=== PATIENT | female | born 1985 | race Caucasian/White ===

== ENCOUNTER 2025-02-01 18:03 | Emergency (ER) | payer BC, SELFPAY ==
[2025-02-01 18:06] VITALS: BP 149/91
[2025-02-01 18:42] LABS: % Basophils 0.4 % (0-2); % Eosinophils 1.7 % (0-6); % Immature Granulocytes 0.2 % (0-0.5); % Lymphocytes 37.6 % (20.5-51.1); % Monocytes 5.3 % (1.7-9.3); % Neutrophils 54.8 % (42.2-75.2); Absolute Eosinophils 0.2 10^3/uL (0-0.7); Absolute Lymphocytes 3.6 10^3/uL (1.2-3.4); Absolute Monocytes 0.5 10^3/uL (0.1-0.6); Absolute Neutrophils 5.3 10^3/uL (1.4-6.5); Hematocrit 43.4 % (37.0-47.0); Hemoglobin 14.8 g/dL (12.0-16.0); Mean Corp Hgb Conc. 34.1 g/dL (33.0-37.0); Mean Corpuscular Hgb 30.3 pg (27.0-31.0); Mean Corpuscular Volume 88.8 fL (81.0-99.0); Mean Platelet Volume 10.9 fL (7.4-10.4); Nucleated Red Blood Cells % 0 %; Platelet Count 258 10^3/uL (130-400); Red Blood Cell Count 4.89 10^6/uL (4.20-5.40); White Blood Cell Count 9.6 10^3/uL (4.8-10.8)
[2025-02-01 18:55] LABS: HCG, Serum Qualitative Screen Negative
[2025-02-01 18:56] LABS: Urine Albumin Negative (Neg - Trace); Urine Bilirubin Negative (Negative); Urine Character Clear (Clear); Urine Color Yellow; Urine Glucose Negative (Negative); Urine Ketone 1+ (Negative); Urine Leukocyte 1+ (Negative); Urine Nitrite Negative (Negative); Urine Occult Blood Negative (Negative); Urine Specific Gravity 1.015 (<1.030); Urine Urobilinogen Negative (Neg - 1+)
[2025-02-01 18:57] LABS: ALT (SGPT) 18 U/L (0-35); AST (SGOT) 20 U/L (14-36); Alkaline Phosphatase 59 U/L (38-126); Blood Urea Nitrogen 9 mg/dl (7-17); Calcium 9.8 mg/dl (8.4-10.2); Carbon Dioxide 24 mmol/L (22-30); Chloride 101 mmol/L (98-107); Glucose 102 mg/dl (70-99); Potassium 3.9 mmol/L (3.5-5.1); Sodium 138 mmol/L (135-145); Total Bilirubin 1.1 mg/dl (0.2-1.3); Total Protein 7.9 g/dl (6.3-8.2); eGFR > 60.00
[2025-02-01 19:22] LABS: Urine Bacteria Moderate (Negative); Urine Red Blood Cell 0-2 /HPF (0-2); Urine Squamous Cell >30 /LPF (Few)
[2025-02-01 19:45] VITALS: BMI 24.2
[2025-02-01] MEDS: NSS 1000 IV (19:51)
[2025-02-01] MEDS: TORADOL 15 MG IV (19:51)
[2025-02-01] MEDS: ZOFRAN 4 MG IV (19:52)
--- NOTE | 2025-02-01 21:48 | ED.GENMED ---
History of Present Illness
General
Chief Complaint: Flank Pain
Source: patient
Exam Limitations: none
Time Seen by Provider: 02/01/25 19:25
Nursing documentation reviewed up to this point in time: agreed with
History of Present Illness
History of Present Illness:
Patient is a 39-year-old female presenting to the emergency department for evaluation of left flank pain. Patient states symptoms initially started about 2 weeks ago and have been relatively intermittent. She initially thought she strained a
muscle. However�on Friday symptoms worsened. She describes a pain in her left mid back with very minimal radiation around to her left abdomen. No radiation to her groin or leg. She does feel as if symptoms are worse with certain positions
and/or movement. Patient denies any associated dysuria, urinary frequency, or hematuria. No vomiting although does report mild nausea with severe waves of pain. No fevers or chills. No chest pain or shortness of breath. Patient denies any
numbness/tingling in lower extremities or bowel/bladder incontinence.
Patient has had a kidney stone in the past and feels symptoms somewhat remind her of that.
Review of Systems
Review of Systems
Allergies reviewed?: Yes
All Other Systems: ROS reviewed and negative except as documented in HPI and ROS
Phy Exam
Physical Exam
Physical Exam:
Vitals: Patient's vital signs are stable. Afebrile
General: Patient is well appearing, no acute distress. Nontoxic appearing
Skin: Warm and dry, no rashes or lesions
Head: Normocephalic, atraumatic
Eyes: Sclera nonicteric. EOMs intact. No nystagmus.
Throat: Protecting airway
Neck: Normal ROM, no cervical spine tenderness, no meningismus
Cardiac: Regular rate and rhythm, no murmurs.
Pulm: Normal respiratory effort, no wheezes, rales, rhonchi heard on exam.
Abdomen: Abdomen soft. No abdominal tenderness. No CVA tenderness or rash. Negative straight leg raise bilaterally.
Extremities: No evidence of cyanosis or edema. Palpable DP pulses
Neuro: AAOx3. CN II-XII intact. No focal neurologic deficits.
Psychiatric: Normal affect.
Course
Orders/Labs/Results
Orders:
Orders
02/01/25 18:09
Test Result ONCE
02/01/25 18:17
Complete Blood Count/With Diff Urgent
Comprehensive Metabolic Panel Urgent
HCG, Serum Qualitative Screen Urgent
Urinalysis Reflex To Culture Urgent
Date Specimen was Collected: 02/01/25
Time Specimen was Collected: 18:09
Urine Microscopic Reflex Cult Urgent
Urine Culture Urgent
TAMMY Source: U
Specimen Description:
Date Specimen was Collected: 02/01/25
Time Specimen was Collected: 18:09
02/01/25 19:42
0.9% Sodium Chloride 1000 ml [Nss] 1,000 ml IV BOLUS
Ketorolac [Toradol] 15 mg IV NOW STA
Ondansetron Injectable [Zofran] 4 mg IV NOW STA
02/01/25 19:43
CT Abd/pel Without Iv Or Oral Urgent
Comment: hx kidney stones
Reason For Exam: L flank pain, +N
02/01/25 21:52
Lidocaine [Lidocaine 4% Patch] 1 patch TOPICAL NOW STA
Apply Lidocaine patch(s) to:: L flank
Abnormal Lab Results
02/01/25
18:17
MPV 10.9 H fL
(7.4-10.4)
Absolute Lymphs (auto) 3.6 H 10^3/uL
(1.2-3.4)
Glucose 102 H mg/dl
(70-99)
Urine Ketones 1+ A
(Negative)
Leukocyte Esterase Rfl 1+ A
(Negative)
Urine WBC (Reflex) 11-15 A /HPF
(0-5)
Urine Bacteria (Reflex) Moderate A
(Negative)
02/01/25 18:17
02/01/25 18:17
Vital Signs
Pulse: 80
Initial and Last Documented VS:
Initial Vital Signs
Temp Pulse Resp BP Pulse Ox
97.6 F 103 16 149/91 98
02/01/25 18:06 02/01/25 18:06 02/01/25 18:06 02/01/25 18:06 02/01/25 18:06
Last Documented Vital Signs
Temp Pulse Resp BP Pulse Ox
97.6 F 80 16 149/91 98
02/01/25 18:06 02/01/25 21:51 02/01/25 18:06 02/01/25 18:06 02/01/25 18:06
MDM/Problems Addressed
Differential Diagnosis Includes:
Not limited to: Nephrolithiasis, pyelonephritis, cystitis, musculoskeletal strain, zoster, etc.
MDM/Problems Addressed:
39-year-old female presenting with intermittent left flank pain over the past few weeks with acute worsening 3 days ago. No fever, chills, vomiting, or urinary complaints. No known inciting injury. Mildly hypertensive and tachycardic although
improved by my assessment. Physical exam as above. Patient overall very well-appearing, in no apparent distress. Mild reproducible tenderness in left flank area without overlying erythema or rash. Abdomen soft and nontender. Differential broad
although given history kidney stone would be on differential. Other consideration include muscular strain which I favor given positional nature to discomfort. There is no rash to suggest zoster. Will check labs, UA, noncontrast CT abdomen/pelvis.
Will give pain medication, IV fluids. Will closely monitor and reassess.
Update: Labs reviewed no clinically significant abnormalities. No leukocytosis. Kidney function normal. Urine somewhat equivocal for infection although favor likely contamination given many squamous cells noted. CT scan without any kidney stones
noted or acute findings. Workup in ED negative. High suspicion for musculoskeletal cause. No red flag back pain symptoms or neurologic signs. Patient's pain seems under well control in emergency department and feel she is stable for discharge
home. Will recommend Tylenol/Motrin, lidocaine patch. Patient will follow-up with her primary care for further evaluation. Close return precautions discussed. Case discussed with attending physician.
Chronic conditions affecting care:
History of kidney stones
Acute Exacerbation and/or Progression of Chronic Illness:
N/A
*Radiology
Radiology exam reviewed: radiology read reviewed
*Pulse Oximetry
Patient hypoxic: no
*EKG
Interpreted by ED Provider?: NA
*Soldering Machine Operator Helper Interpretation
Rate: Soldering Machine Operator Helper- N/A
*Critical Care Note
Total Time (30-74mins, 75-104mins- exclusive of procedures): Not Applicable
ED Attending Note
-
Portions of this chart may have been created with voice recognition software.� Occasional wrong word or��sound alike� substitutions may have occurred due to the inherent limitations of voice recognition software.
Discharge Plan
Departure
Patient Disposition: Home (Routine Discharge)
Date of Disposition: 02/01/25
Time of Disposition: 21:53
Patient with high blood pressure during this ER visit?: Yes
Condition: Good
Discharge Problem:
Left flank pain
Instructions: Flank Pain (DC), BLOOD PRESSURE
Referrals:
Mango Mares MD [Family Provider] - Follow up in 2-3 days
Activity Restrictions/Additional Instructions:
Return to the emergency department with any high fevers, chest pain, shortness of breath, intractable pain, severe abdominal pain, difficulties urinating, or any other concerns
-As discussed�your lab work showed no abnormalities. Your CT scan showed no evidence of a kidney stone.
-You should try MiraLAX for constipation noted on CT scan. You should take Tylenol and/or Motrin every 6-8 hours as needed for pain. You can also try OTC lidocaine patches and heating pads. Stay well-hydrated.
-Follow-up with your primary care for further evaluation/management as needed
Monitor your symptoms closely and return to the emergency department with any acute worsening/new symptoms or any other concerns
Interventions
Interventions:
*Risk Screen - Suicide Last Done: 02/01/25 18:10
*General Assessment Last Done: 02/01/25 19:00
*Neglect/Abuse Screening Last Done: 02/01/25 18:10
*ED- Fall Risk Assessment Last Done: 02/01/25 19:00
*ED COVID-19 Vaccine History Last Done: 02/01/25 19:00
*Nursing Disposition Last Done: 02/01/25 22:21
EN-Cnszeb-Joqrxelqpv Assessment Last Done: 02/01/25 19:46
ED-Female Genitourinary Assessment Last Done: 02/01/25 19:46
Discharge Date and Time
Discharge Date/Time: 02/01/25 22:22
Print Language: POLISH
[2025-02-01] MEDS: LIDOCAINE 4% PATCH 1 PATCH TOPICAL (22:02)
== END 2025-02-01 22:22 | disposition home or self-care (01) ==
LOC: EMR 18:03
PROVIDERS: Emergency Medicine; EMERGENCY PHYSICIAN Emergency Medicine; FAMILY PHYSICIAN Internal Medicine
DX: R10.9 Unspecified abdominal pain (principal); M54.6 Pain in thoracic spine; R11.0 Nausea; R03.0 Elevated blood-pressure reading, without diagnosis of hypertension; K58.9 Irritable bowel syndrome, unspecified; F41.9 Anxiety disorder, unspecified; E07.9 Disorder of thyroid, unspecified; Z87.442 Personal history of urinary calculi
CPT/HCPCS: 99284; 96374; 96375; 96361; 74176; 80053; 81003; 81015; 84703; 85025; 87086